=== PATIENT | male | born 1960 | race Caucasian/White ===

== ENCOUNTER 2019-04-23 16:19 | Inpatient (IN) ==
[2019-04-23] MEDS ORDERED: ZOFRAN IV ONE (16:58)
[2019-04-23 17:14] LABS: BASO# 0.01 X1000 (0.0-0.2); BASO% 0.1 % (0.0-0.8); EOS# 0.03 X1000 (0.0-0.7); EOS% 0.2 % (0.0-10.0); HEMATOCRIT 46.8 % (42.0-52.0); HEMOGLOBIN 15.9 g/dL (14.0-18.0); IMM GRAN# 0.06 X1000 (0.0-0.04); IMM GRAN% 0.5 % (0.0-0.5); LYMPH# 0.59 X1000 (1.2-3.4); LYMPH% 4.5 % (20.5-51.1); MCH 29.9 PG (27-31); MONO# 0.73 X1000 (0.11-0.59); MONO% 5.6 % (1.7-9.3); MPV 10.7 FL (7.4-10.4); NEUT% 89.1 % (42.2-75.2); PLT 215 X1000 (130-400); RBC 5.32 XMIL (4.7-6.1); RDW 14.7 % (11.5-14.5); WBC 13.02 X1000 (4.8-10.8)
[2019-04-23 17:21] LABS: INR 0.94; PROTIME 12.6 Seconds (11.0-16.0)
[2019-04-23 17:22] LABS: PTT 24.8 Seconds (22.3-41.8)
--- NOTE | 2019-04-23 17:23 | Diag Imaging Result Doc PS360 ---
EXAM: CHEST-1 VIEW - 04/23/2019 HISTORY: abd pain TECHNIQUE: Portable chest one view COMPARISON: 04/24/2016 FINDINGS: Heart size appears upper normal. There is a right basilar calcified granuloma from old granulomatous disease. The lungs otherwise appear clear. There is a small right pleural effusion. There is no evidence of pneumothorax. IMPRESSION: Small right pleural effusion. No other evidence of acute disease. Electronically signed by Shmuel De Souza 04/23/2019 5:21 PM
[2019-04-23 17:35] LABS: URINE SOURCE CLEAN CATCH
[2019-04-23 17:38] LABS: BILIRUBIN URINE NEGATIVE (NEGATIVE); BLOOD URINE TRACE (NEGATIVE); COLOR YELLOW; GLUCOSE URINE 500 mg/dL (NEGATIVE); KETONE URINE 10 mg/dL (NEGATIVE); LEUKOCYTES URINE NEGATIVE (NEGATIVE); NITRITE URINE NEGATIVE (NEGATIVE); PROTEIN URINE 100 mg/dL (NEGATIVE); SP GRAVITY URINE 1.021; TURBIDITY URINE CLEAR (CLEAR); UROBILINOGEN URINE NORMAL (NORMAL)
[2019-04-23] MEDS ORDERED: MORPHINE IV ONE ×2 (17:38→19:22)
[2019-04-23 17:40] LABS: UR EPITHELIAL CELLS <10 /HPF (<10); URINE BACTERIA NEGATIVE /HPF; URINE RBC <10 /HPF (<10); URINE WBC <10 /HPF (<10)
[2019-04-23 17:42] LABS: ALB/GLOB RATIO 1.5; ALBUMIN 4.5 g/dL (3.5-5.0); CALCIUM 10.7 mg/dL (8.8-10.2); CREATININE 1.3 mg/dL (0.7-1.2); TOTAL BILIRUBIN 0.52 mg/dL (0.20-1.00); TOTAL PROTEIN 7.5 g/dL (6.3-8.3)
[2019-04-23] MEDS: NS 1,000 ML IV SCH (17:46)
--- NOTE | 2019-04-23 19:01 | PROVIDER DOCUMENTATION ---
This chart was entered by Caitlyn Hunter Scribe, acting as scribe for Conrad Bergeron MD. HPI-Abdominal Pain/GI Problem - General Source: patient, family () - History of Present Illness-ABD Nature of Presenting Problems: 58 yowm presents to the ed with c/o epigastric pain radiating into RUQ and LUQ with nausea and vomiting. pt sts acute onset @ 0900am this morning and has been worsening since onset. pt sts constant dull pain with intermittent sharp stanley. pt sts he has had abnormal BM today with onset of only 1 movement and normally he has multiple BM daily. pt st standing improves pain but does not make it resolve, lying on back or side increases pain. t on exam looks to not feel well but is nontoxic in appearance Abdominal Pain Onset Location: reports: epigastric Pain Radiation: reports: RUQ, LUQ Quality of Pain: reports: dull (constant), sharp (intermittent) Severity in ED: reports: moderate Onset/Duration: reports: this morning (0900) Timing: reports: still present, constant, getting worse Activities at Onset: reports: light activity Exposure to sick contacts?: No Modifying Factors: improves with: other (standing). worse with: lying down, movement, palpation Associated Symptoms: reports: malaise, nausea, vomiting. denies: back/neck pain, chest pain, diarrhea, fever/chills, headaches, shortness of breath, sensory/motor loss Last BM: this morning Dark Stools Present?: reports: none noticed Rectal Bleeding: reports: none # of Diarrhea Episodes: 0 Rectal Pain: reports: none # of Vomiting Episodes: 3 Bruising or Bleeding Gums?: No Similar Symptoms Previously?: No Recently seen or treated by another doctor?: No <Conrad Bergeron - Last Filed: 04/23/19 18:59> <Ruel Canela - Last Filed: 04/24/19 00:18> - General Chief Complaint: Abdominal Pain Stated Complaint: STOMACH PAIN Time Seen by Provider: 04/23/19 16:33 Allergies/Adverse Reactions: Patient Allergies Allergy/AdvReac Type Severity Reaction Status Date / Time No Known Allergies Allergy Verified 01/13/18 12:32 Home Medications: Home Medication List Medication Instructions Recorded Confirmed Last Taken Type Aspirin [Ecotrin] 81 mg PO DAILY 1204/23/19 01/12/18 History Azathioprine [Imuran] 50 mg PO QHS 04/24/16 04/23/19 01/12/18 20:00 History 50 Carvedilol [Coreg] 12.5 mg PO BID 04/24/16 04/23/19 01/12/18 20:00 History 12.5 Hydrochlorothiazide 12.5 mg PO DAILY 04/24/16 04/23/19 01/12/18 07:00 History 12.5 Lisinopril 20 mg PO DAILY 04/24/16 04/23/19 01/12/18 07:00 History 10 Nifedipine [Nifedipine ER] 30 mg PO BID 01/12/18 04/23/19 01/12/18 20:00 History 30 PRAVAstatin [Pravachol] 40 mg PO QHS 01/12/18 04/23/19 01/12/18 20:00 History 40 Pantoprazole [Protonix] 40 mg PO QAM 01/12/18 04/23/19 01/12/18 06:00 History 40 Tacrolimus 2 cap PO QHS 01/12/18 04/23/19 01/12/18 20:00 History 2 Tacrolimus 3 cap PO QAM 01/12/18 04/23/19 01/12/18 07:00 History 3 Azathioprine [Imuran] 1 tab PO QHS 04/23/19 04/23/19 Unknown History Fenofibrate [Tricor] 1 tab PO QHS 04/23/19 04/23/19 Unknown History Gabapentin 1 cap PO PRN PRN 04/23/19 04/23/19 Unknown History Glipizide [Glipizide ER] 1 tab PO BID 04/23/19 04/23/19 Unknown History Insulin Glargine,Hum.rec.anlog 20 units SUBQ PRN PRN 04/23/19 04/23/19 Unknown History [Toujeo Solostar] Liraglutide [Victoza] 1.8 mg SUBQ QHS 04/23/19 04/23/19 Unknown History Metformin E.r. [Glucophage Xr] 1,000 mg PO QHS 04/23/19 04/23/19 Unknown History Review of Systems - Adult - REVIEW OF SYSTEMS - ADULT Constitutional: denies: chills, fever Eyes: reports: no symptoms reported Ears, Nose, Mouth & Throat: reports: no symptoms reported Cardiovascular: denies: chest pain, palpitations Respiratory: denies: cough, shortness of breath, wheezing Gastrointestinal: reports: see HPI, abdominal pain, nausea, vomiting Genitourinary: denies: dysuria, flank pain Musculoskeletal: denies: back pain, neck pain Integumentary: reports: no symptoms reported Neurological: denies: dizziness/vertigo, headache/migraines Psychiatric: reports: no symptoms reported Endocrine: reports: no symptoms reported Hematologic/Lymphatic: reports: no symptoms reported Allergic/Immunologic: reports: no symptoms reported All Other Systems: Reviewed and Negative <Conrad Bergeron - Last Filed: 04/23/19 18:59> Past History - Adult - PAST MEDICAL HISTORY-ADULT Review of Records: reports: Old Records Reviewed, Nursing Assessment Review, Medications Reviewed, Social history reviewed & non-contributory. 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), other (portal venous hypertension) Genitourinary: reports: kidney stones Musculoskeletal: reports: denies history Neurological: reports: denies history Psychiatric: reports: denies history Endocrine/Immune: reports: Diabetes Diabetes Type: Type 2 Other Conditions: reports: denies history Additional History: skin cancer - PRIOR SURGERIES/PROCEDURES Surgical/Procedure History: reports: cholecystectomy, joint replacement, other (portacava shunt to liver/liver transplant) - IMMUNIZATION STATUS Childhood Immunizations: See Nurse Assessment Flu Vaccine: See Nurse Assessment - FAMILY HISTORY Family History: reviewed, not pertinent - SOCIAL HISTORY Smoking: denies Substance Use: denies Living Situation: family <Conrad Bergeron - Last Filed: 04/23/19 18:59> Physical Exam-General - PHYSICAL EXAM-ADULT Initial Vital Signs Reviewed: Yes - CONSTITUTIONAL General Appearance: appears well, alert, mild distress, obese - EYES Eyes: PERRL/EOMI, pink conjunctivae - HEAD, EARS, NOSE, MOUTH & THROAT HENMT: moist mucous membranes - NECK Neck: non-tender, full range of motion, supple, normal inspection - RESPIRATORY Respiratory: chest non-tender, lungs clear, normal breath sounds - CARDIOVASCULAR Cardiovascular: normal peripheral pulses, regular rate, rhythm - CHEST (BREASTS) Chest/Breast: deferred - GASTROINTESTINAL (ABDOMEN) Abdominal Exam: soft, abnormal bowel sounds (decreased), guarding, tenderness (epigastric RUQ and LUQ), other (has nausea on exam). negative: distended, rigid, rebound - GENITOURINARY Male Genitalia: deferred Rectal Exam: deferred Hemoccult Exam: deferred - MUSCULOSKELETAL Back Exam: normal inspection, no CVA tenderness, no vertebral tenderness Extremity: normal range of motion, non-tender, normal capillary refill - SKIN Integumentary: normal color, normal turgor, warm/dry - NEUROLOGIC Neurologic: grossly normal - PSYCHIATRIC Psych/Mental Status: normal mood/affect, normal thought content, normal thought process, oriented x 3 <Conrad Bergeron - Last Filed: 04/23/19 18:59> Progress - PLAN OF CARE/RESULTS Progress/Plan/Lab Results: Vital Signs - 8 hr 04/23/19 16:27 Temperature 98 F Pulse Rate 70 Respiratory Rate 18 Blood Pressure 134/83 O2 Sat by Pulse Oximetry 100 Result Diagrams: 04/23/19 17:02 04/23/19 17:02 - EKG 1 Time of EKG reading by physician:: 17:09 EKG Read and Signed by:: Conrad Bergeron EKG Interpretation (*Must complete 3 of following elements*): Normal (borderline) Rate: 67 Rhythm: nsr [place]: normal QRS: other (low voltage qrs) CT Interval: normal ST Wave: normal - XRAY 1 XRAY: Bilateral XRAY Study: Chest Impression: See EMR Report (EXAM: CHEST-1 VIEW - 04/23/2019 HISTORY: abd pain TECHNIQUE: Portable chest one view COMPARISON: 04/24/2016 FINDINGS: Heart size appears upper normal. There is a right basilar calcified granuloma from old granulomatous disease. The lungs otherwise appear clear. There is a small right pleural effusion. There is no evidence of pneumothorax. IMPRESSION: Small right pleural effusion. No other evidence of acute disease. Electronically signed by Shmuel De Souza 04/23/2019 5:21 PM 04/23/19 1721 Interpreting Physician: Shmuel De Souza MD Dictated Date/Time: 04/23/19 1720 cc: Conrad Bergeron MD; Jerrica Nava MD) - CT/MRI 1 CT Study: Abdomen, Pelvis Impression: See EMR Report - CHANGE OF SHIFT REPORT (ED Provider) 1 Report Given and Care Transferred to:: [facility] Time of Transfer: 18:59 Items Pending: CT/MRI Results <Conrad Bergeron - Last Filed: 04/23/19 18:59> - PLAN OF CARE/RESULTS Progress/Plan/Lab Results: Vital Signs - 8 hr 04/23/19 16:27 04/23/19 16:41 04/23/19 17:45 Temperature 98 F Pulse Rate 70 Respiratory Rate 18 Blood Pressure 134/83 131/88 131/86 O2 Sat by Pulse Oximetry 100 99 98 04/23/19 18:01 04/23/19 18:30 04/23/19 19:00 Temperature Pulse Rate Respiratory Rate Blood Pressure 134/84 O2 Sat by Pulse Oximetry 92 L 99 99 04/23/19 19:01 Temperature Pulse Rate Respiratory Rate Blood Pressure 150/96 O2 Sat by Pulse Oximetry 98 Laboratory Results - last 24 hr 04/23/19 04/23/19 04/23/19 17:02 17:02 17:02 WBC 13.02 H RBC 5.32 Hgb 15.9 Hct 46.8 MCV 88.0 MCH 29.9 MCHC 34.0 RDW Std Deviation 14.7 H Plt Count 215 MPV 10.7 H Immature Gran % (Auto) 0.5 Neut % (Auto) 89.1 H Lymph % (Auto) 4.5 L [place] % (Auto) 5.6 Eos % (Auto) 0.2 Baso % (Auto) 0.1 Immature Gran # (Auto) 0.06 H Neut # (Auto) 11.60 H Lymph # (Auto) 0.59 L [place] # (Auto) 0.73 H Eos # (Auto) 0.03 Baso # (Auto) 0.01 PT 12.6 INR 0.94 PTT (Actin FS) 24.8 Sodium 135 L Potassium 5.0 Chloride 96 L Carbon Dioxide 19 L Anion Gap 20 BUN 28 H Creatinine 1.3 H Estimated GFR/1.73 m2 57 BUN/Creatinine Ratio 22 Glucose 221 H Calculated Osmolality 282 Calcium 10.7 H Total Bilirubin 0.52 AST 22 ALT 29 Alkaline Phosphatase 46 Total Protein 7.5 Albumin 4.5 Globulin 3.0 Albumin/Globulin Ratio 1.5 Amylase 410 H Lipase 1318 H Urine Source Urine Color Urine Turbidity Urine pH Ur Specific [place] Urine Protein Ur Glucose (Stick) Ur Ketones (Stick) Urine Blood Urine Nitrite Urine Bilirubin Urobilinogen Dipstick Urine Leukocytes Urine WBC (Auto) Urine RBC (Auto) U Epithel Cells (Auto) Urine Bacteria (Auto) 04/23/19 17:30 WBC RBC Hgb Hct MCV MCH MCHC RDW Std Deviation Plt Count MPV Immature Gran % (Auto) Neut % (Auto) Lymph % (Auto) [place] % (Auto) Eos % (Auto) Baso % (Auto) Immature Gran # (Auto) Neut # (Auto) Lymph # (Auto) [place] # (Auto) Eos # (Auto) Baso # (Auto) PT INR PTT (Actin FS) Sodium Potassium Chloride Carbon Dioxide Anion Gap BUN Creatinine Estimated GFR/1.73 m2 BUN/Creatinine Ratio Glucose Calculated Osmolality Calcium Total Bilirubin AST ALT Alkaline Phosphatase Total Protein Albumin Globulin Albumin/Globulin Ratio Amylase Lipase Urine Source CLEAN CATCH Urine Color YELLOW Urine Turbidity CLEAR Urine pH 6.0 Ur Specific [place] 1.021 Urine Protein 100 A Ur Glucose (Stick) 500 A Ur Ketones (Stick) 10 A Urine Blood TRACE A Urine Nitrite NEGATIVE Urine Bilirubin NEGATIVE Urobilinogen Dipstick NORMAL Urine Leukocytes NEGATIVE Urine WBC (Auto) <10 Urine RBC (Auto) <10 U Epithel Cells (Auto) <10 Urine Bacteria (Auto) NEGATIVE Orders Category Date Time Status Nursing- Obtain EKG ONCE Care 04/23/19 16:58 Active CHEST-1 VIEW [RAD] Stat Exams 04/23/19 16:[address] ABD/PELVIS W/IV CONT ONLY [CT] Stat Exams 04/23/19 16:58 Taken AMYLASE [CHEM] Stat Lab 04/23/19 17:02 Completed CBC WITH DIFF [HEME] Stat Lab 04/23/19 17:02 Completed COMPREHENSIVE METABOLIC PANEL [CHEM] Stat Lab 04/23/19 17:02 Completed LIPASE [CHEM] Stat Lab 04/23/19 17:02 Completed PROTIME WITH INR [COAG] Stat Lab 04/23/19 17:02 Completed PTT [COAG] Stat Lab 04/23/19 17:02 Completed URINALYSIS [URINALYSIS] Stat Lab 04/23/19 17:30 Completed 0.9% Sodium Chloride Inj [Ns] 1,000 ml Med 04/23/19 17:15 Active IV 200 mls/hr Morphine Med 04/23/19 17:38 Discontinued 4 mg IV NOW ONE Morphine Med 04/23/19 19:22 Discontinued 4 mg IV NOW ONE Ondansetron [Zofran] Med 04/23/19 16:58 Discontinued 8 mg IV NOW ONE EKG [EKG] Stat Ther 04/23/19 16:58 Draft Pt signed out to me by Dr. Bergeron, spoke with Dr. Neumann and will admit Result Diagrams: 04/23/19 17:02 04/23/19 17:02 <Ruel Canela - Last Filed: 04/24/19 00:18> Departure - Departure Date of Disposition Decision: 04/23/19 Certified Medical Emergency: Emergent - Critical Care Note This patient required my direct & personal management of CC.: No <Conrad Bergeron - Last Filed: 04/23/19 18:59> - Departure Date of Disposition Decision: 04/24/19 Time of Disposition Decision: 00:15 <Ruel Canela - Last Filed: 04/24/19 00:18> - Departure DIAGNOSIS: Liver transplant recipient Pancreatitis Qualifiers: Chronicity: acute Pancreatitis type: unspecified pancreatitis type Acute pancreatitis complication: no infection or necrosis Qualified Code(s): K85.90 - Acute pancreatitis without necrosis or infection, unspecified Disposition: ADMITTED INPATIENT 09 Condition: Good Referrals and Follow-Ups: Jerrica Nava MD [Primary Care Provider] - Attestation - Physician/ ANTONIETA Attestation Patient care was provided by Advanced Practice Provider:: No The physician spent face to face time with patient:: Yes Advanced Practice Provider documentation review:: Supervising physician onsite a nd consulted in the evaluation and care of this patient. The physician did have a face to face encounter with the patient. <Conrad Bergeron - Last Filed: 04/23/19 18:59> This chart was documented by the indicated scribe, (Caitlyn Hunter Scribe) and accurately reflects the services I performed and decisions made by me, Conrad Bergeron MD, as attested by the provider's signature.
--- NOTE | 2019-04-23 21:02 | EKG Report ---
Test Performed on : 04/23/2019 5:09:42 PM Test Reason : abd pain Blood Pressure : / mmHG Vent. Rate : 067 BPM Atrial Rate : 067 BPM P-R Int : 148 ms QRS Dur : 094 ms QT Int : 416 ms P-R-T Axes : 067 019 066 degrees QTc Int : 439 ms Normal sinus rhythm. Low voltage QRS Borderline ECG When compared with ECG of 24-APR-2016 13:36, No significant change was found Unconfirmed Result
[2019-04-24] MEDS ORDERED: MORPHINE IV ONE (00:20)
[2019-04-24] MEDS ORDERED: MORPHINE ONE (00:20)
[2019-04-24] MEDS ORDERED: ZOFRAN IV ONE (00:20)
[2019-04-24] MEDS ORDERED: ZOFRAN ONE (00:20)
[2019-04-24] MEDS: NS 1,000 ML IV SCH ×3 (00:36→17:50)
[2019-04-24] MEDS ORDERED: SODIUM CHLORIDE 0.9% INJ PRN (02:14)
[2019-04-24] MEDS: MORPHINE IV PRN ×3 (03:49→17:50)
[2019-04-24] MEDS: PHENERGAN IV PRN ×3 (03:49→17:51)
[2019-04-24] MEDS ORDERED: NS 1,000 ML IV SCH (04:30)
[2019-04-24 07:04] LABS: BASO# 0.01 X1000 (0.0-0.2); BASO% 0.1 % (0.0-0.8); EOS# 0.08 X1000 (0.0-0.7); EOS% 0.8 % (0.0-10.0); HEMATOCRIT 45.8 % (42.0-52.0); HEMOGLOBIN 15.3 g/dL (14.0-18.0); IMM GRAN# 0.03 X1000 (0.0-0.04); IMM GRAN% 0.3 % (0.0-0.5); LYMPH# 0.47 X1000 (1.2-3.4); LYMPH% 4.6 % (20.5-51.1); MCH 29.9 PG (27-31); MCHC 33.4 g/dL (33-37); MCV 89.6 FL (81-99); MONO# 0.77 X1000 (0.11-0.59); MONO% 7.5 % (1.7-9.3); MPV 10.4 FL (7.4-10.4); NEUT# 8.92 X1000 (1.4-6.5); NEUT% 86.7 % (42.2-75.2); PLT 172 X1000 (130-400); RBC 5.11 XMIL (4.7-6.1); WBC 10.28 X1000 (4.8-10.8)
[2019-04-24 07:13] LABS: HEMOGLOBIN A1C 6.1 % (4.8-6.0)
[2019-04-24 07:43] LABS: ALB/GLOB RATIO 1.5; ALBUMIN 4.3 g/dL (3.5-5.0); CALCIUM 9.7 mg/dL (8.8-10.2); CREATININE 1.3 mg/dL (0.7-1.2); MAGNESIUM 1.6 mg/dL (1.5-2.7); POTASSIUM 5.1 mmol/L (3.5-5.1); TOTAL BILIRUBIN 0.36 mg/dL (0.20-1.00); TOTAL PROTEIN 7.1 g/dL (6.3-8.3)
--- NOTE | 2019-04-24 08:09 | Diag Imaging Result Doc PS360 ---
EXAM: CT ABD/PELVIS W/IV CONT ONLY HISTORY: abd pain, poss SBO TECHNIQUE: CT abdomen and pelvis with intravenous contrast COMPARISON: None. FINDINGS: There are calcified right hilar and subcarinal lymph nodes with a right lower lobe granuloma. Prominent fatty infiltration of the liver. The gallbladder has been removed. There is inflammation about the pancreas and duodenum. No pancreatic calcifications or pseudocyst. The spleen measures 14.8 cm in length. Normal adrenal glands and kidneys. No hydronephrosis. No aortic aneurysm. Varices in the left upper quadrant. Moderate atherosclerosis. No bowel obstruction. No inflammation about the cecum. The urinary bladder is moderately distended and is normal. Normal prostate. IMPRESSION: 1.Acute pancreatitis and possible duodenitis 2.Fatty infiltration of the liver 3.Mild splenomegaly 4.Cholecystectomy 5.There is evidence of a prior granulomatous infection 6.Atherosclerosis 7.A preliminary report was given at 11:08 PM on 04/23/2019 This exam was performed using automated exposure control, adjustment of mA or kV according to patient size, and/or use of iterative reconstruction technique. Electronically signed by Jay Patel 04/24/2019 8:06 AM
--- NOTE | 2019-04-24 08:45 | HISTORY AND PHYSICAL ---
PRIMARY CARE PROVIDER: Dr. Jerrica Nava. DATE AND TIME: 04/24/2019 at 0200. CHIEF COMPLAINT: Abdominal pain. HISTORY OF PRESENT ILLNESS: Mr. Rushing is a 58-year-old, male with a past medical history of liver transplantation. He did have a history of cirrhosis of the liver which was thought to be deemed secondary to fatty infiltration of the liver. On 01/29/2014, he did undergo a liver transplantation. He is followed by Dr. Mullen at [facility] in [place], [place]. He does have his next followup appointment on 05/10/2019. The patient states that starting yesterday morning at 9 a.m., he did begin to have right upper quadrant and left upper quadrant abdominal pain. The patient states the pain is a constant dull ache, between 3 and 5/10 on the pain scale, though it does become sharp and more intense at times, getting up to a 9/10 on the pain scale. Pain medicine has helped improve his pain. He states that his pain gets worse when he takes a deep breath. He also reports that he has had 2 episodes of nausea and vomiting since the onset of his abdominal pain. He also states that he has noted a decrease in his bowel movements. The patient states that he normally has a few bowel movements a day. This is secondary to some of the medicine that he takes. Though, he has not had a bowel movement since yesterday. He denied any hematemesis, any coffee-grounds appearing emesis, hematochezia, or melena. The patient states that his stools have been brown but shiny in color as well. He definitely stated that he was not having black stools. The patient did recently travel to [facility] on a 4 day [place] cruise, though he did come back Thursday. He had felt fine throughout the trip and since returning from his trip, he did begin not feeling well yesterday morning. He also states everyone that traveled with them has felt good as well. They all ate the same foods. He denied any other travel outside the [place] The patient denies any headache, dizziness. He denies any chest pain, shortness of breath, or cough. He denies any dysuria or urinary frequency. He also denies any pain, numbness, tingling, or swelling in extremities. Also, would like to note that upon further questioning, the patient did start a new medication recently of Victoza, which can be known to cause pancreatitis as well. Upon evaluation in the ER, the patient did have some mild leukocytosis with a white blood cell count of 13,002. He also does appear to have acute kidney injury with a BUN of 28, creatinine of 1.3, and a GFR of 57. The amylase was elevated at 1410 and lipase was elevated at 1318. Urinalysis obtained did show urine positive for protein, glucose, ketones, and trace blood, though was otherwise negative for nitrites, leukocytes, white blood cells, or bacteria. Given the patient's reported symptoms, we did perform a CT of the abdomen and pelvis which did show that the patient had peripancreatic fat stranding suggestive of acute interstitial pancreatitis, though there were no fluid collections or pancreatic devascularization noted. 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 There was also fatty hepatomegaly. We will hydrate the patient. We will treat his pain. We will place him on the medical floor for further treatment and evaluation. REVIEW OF SYSTEMS: A 14 point review of systems was conducted with the patient. All were negative except for pertinent positives mentioned above in the HPI. PAST MEDICAL HISTORY: 1. Recent diagnosis and removal of a basal cell carcinoma to his right face/cheek area. 2. Diabetes mellitus. 3. Hypertension. 4. History of kidney stones. 5. Hyperlipidemia. 6. Sleep apnea for which the patient wears CPAP at night. 7. History of cirrhosis of the liver for which was thought to be secondary to fatty infiltration of the liver. The patient has since undergone a liver transplantation on 01/29/2014. He is followed by a physician in [place], [place]. 8. History of gastritis and reflux disease. 9. History of GI bleeding. PAST SURGICAL HISTORY: 1. Cholecystectomy. 2. Portacaval shunt. 3. Right knee meniscus repair. 4. A partial right knee replacement. 5. Liver transplantation in 2013. SOCIAL HISTORY: The patient is a former smoker. He did smoke 2 packs per day for 30 years, though quit smoking in 2007. FAMILY HISTORY: The patient states that he is adopted. He does not know his biological family history. ALLERGIES: Patient has no known allergies. HOME MEDICATIONS: 1. Aspirin 81 mg p.o. daily. 2. Imuran 50 mg p.o. at bedtime. 3. Coreg 12.5 mg p.o. b.i.d. 4. Gabapentin 100 mg capsule p.o. p.r.n. as directed. 5. Glipizide extended release 10 mg tablet p.o. b.i.d. 6. Hydrochlorothiazide 12.5 mg p.o. daily. 7. Toujeo SoloSTAR 20 units subcutaneously as directed. 8. Victoza 1.8 mg subcutaneously at bedtime. 9. Lisinopril 20 mg p.o. daily. 10. Glucophage XR 1000 mg p.o. at bedtime. 11. Nifedipine extended release 30 mg p.o. b.i.d. 12. Protonix 40 mg p.o. daily. 13. Pravastatin 40 mg p.o. at bedtime. 14. Prograf 1 mg capsule, 3 capsules p.o. q.a.m. 15. Prograf 1 mg capsule, 2 capsules p.o. at bedtime. DIAGNOSTIC DATA/LABORATORY RESULTS: White blood cell count is 13,002, hemoglobin 15.9, hematocrit 46.8, platelet count is 215,000. PT 12.6, INR 0.94, PTT is 24.8. Sodium 135, potassium 5, chloride 96, serum bicarbonate is 19, BUN 28, creatinine 1.3, GFR is 57, glucose 221, calcium 10.7. Liver function tests within normal limits. Amylase 1410, lipase is 1318. Urinalysis was obtained via clean catch, was positive for protein, glucose, ketones, and trace blood, though was negative for nitrites, leukocytes, white blood cells, or bacteria. EKG showed normal sinus rhythm at a rate of 67 with a QTc of 439. Chest x-ray showed small right pleural effusion, though no evidence of acute disease. CT of the abdomen and pelvis with contrast did show peripancreatic fat stranding suggestive of acute interstitial pancreatitis. There were no fluid collections or pancreatic devascularization noted. The was also a large gastric cardia varix that was noted as a component of a splenorenal shunt. There was also fatty hepatomegaly noted. PHYSICAL EXAMINATION: VITAL SIGNS: Temperature 98.1 degrees, heart rate 73, respirations 18, blood pressure is 142/82, oxygen saturation is 96% on room air. GENERAL: Mr. Rushing is a very pleasant, 58-year-old, male who is resting in the inpatient bed. He was alert and oriented to person, place, time, and situation. HEENT: Head is atraumatic and normocephalic. Pupils are equal, round, reactive to light, were 3 mm bilaterally and brisk. Oral mucosa was moist. Oropharynx is clear. NECK: Supple. Trachea midline. CARDIOVASCULAR: Patient has S1-S2 present. No murmurs, gallops, or rubs appreciated, with a regular rate and rhythm. PULMONARY: The patient has symmetrical chest expansion bilaterally. LUNGS: Lung sounds are clear to auscultation in bilateral full browne. ABDOMEN: Soft. Does not appear to be distended. The patient does have a protuberant abdomen noted. Bowel sounds are present in all 4 quadrants, were slightly hyperactive. The patient did report tenderness in the right upper quadrant, epigastric area, and left upper quadrant. This was worse in the right upper quadrant area. EXTREMITIES: No cyanosis or edema noted. Pulse, motor, and sensory were intact in all extremities. Radial pulses and pedal pulses were 2+ bilaterally. INTEGUMENTARY: The patient's skin is pink, warm, and dry. NEUROLOGICAL: The patient is alert and oriented to person, place, time, and situation. He is able to move all extremities. There were no focal neurological deficits noted. ASSESSMENT AND PLAN: 1. Acute pancreatitis. For further evaluation of this, we have ordered additional laboratory studies of a hemoglobin A1c, a lipid panel, a CRP, as well as a repeat amylase and lipase in the morning. We will provide intravenous hydration with normal saline for the patient. We will also provide as needed antiemetics and pain medicines. The patient did report that he recently did start taking a new medication of Victoza, which can be known to cause pancreatitis as well. We will continue to await diagnostic study results and follow along. We have placed a consult with Dr. Bishop with gastroenterology. We are awaiting his evaluation and further recommendations for management. 2. Status post liver transplantation. The patient, from what I understand, did develop cirrhosis of the liver secondary to a fatty liver. On the patient's CT, he did have fatty hepatomegaly noted as well. We have ordered a lipid panel. We are also going to perform an abdominal ultrasound this morning. We will continue his regularly prescribed medications of Imuran and Prograf. We will await gastroenterology evaluation and further recommendations for management. 3. Nausea and vomiting. We are providing intravenous hydration. We will continue with as needed antiemetics. 4. Hypertension. We have continued the patient's Coreg. 5. Hyperlipidemia. We do have a lipid profile ordered at this time. We are awaiting those results. We will continue to follow. 6. Diabetes mellitus. We have been held the patient's oral diabetic medications. We will place him on pattern of fingerstick blood sugars. Given that he is nothing per oral at this time, we will do a patient specific sliding scale regular insulin. 7. Sleep apnea. The patient is going to bring his CPAP machine from home. 8. Deep vein thrombosis prophylaxis will be provided with sequential compression devices. The patient has been placed on the medical floor with telemetry. He will have vital signs every 6 hours. We will do strict intake and output, incentive spirometry. Further orders and recommendations pending hospital course, diagnostic studies, and physician evaluation. Dictated by MAHAMED Allen for Aidan Neumann MD cc: Aidan Neumann MD Patient presenting with abdominal pain. Lipase is raised. I concur with the assessment and plan of the COMPUTER SUPPORT SPECIALIST. . [facility]
[2019-04-24 09:17] LABS: C REACTIVE PROT QUANT 35.04 mg/L (0.00-5.00)
[2019-04-24] MEDS: COREG PO SCH ×2 (09:36→20:36)
[2019-04-24] MEDS: PROGRAF PO SCH ×2 (09:37→20:37)
[2019-04-24] MEDS: PROTONIX IV SCH ×2 (09:37→09:41)
--- NOTE | 2019-04-24 10:47 | Diag Imaging Result Doc PS360 ---
EXAM: US ABDOMEN-COMPLETE HISTORY: Fatty Hepatomegaly,Hx of Liver Transplant TECHNIQUE: Abdominal ultrasound COMPARISON: CT from 04/23/2019 FINDINGS: The pancreas is predominantly obscured. There is fatty infiltration of the liver. It is difficult to penetrate the liver. The liver is prominent. No hydronephrosis to the right kidney. The gallbladder is not present. The common bile duct measures 7 mm. Normal left kidney. No hydronephrosis. Spleen measures 15.7 cm in length. No ascites. IMPRESSION: 1.Fatty infiltration of the liver 2.Cholecystectomy 3.Splenomegaly Electronically signed by Jay Patel 04/24/2019 10:45 AM
[2019-04-24] MEDS: HUMULIN R SUBQ SCH ×3 (11:18→20:36)
--- NOTE | 2019-04-24 15:38 | PROGRESS NOTE ---
DATE: 04/24/2019 SUBJECTIVE: Patient has no major complaints. OBJECTIVE: Vitals: Blood pressure is 138/83, heart rate 74, respiratory rate 20, temperature 98 degrees, 98% on room air. Cardiovascular: Regular rate and rhythm. Pulmonary: Bilateral breath sounds, clear to auscultation. GI: Soft, nontender, nondistended. Bowel sounds are positive. LABORATORY DATA: White count 10, hemoglobin and hematocrit 15 and 45, platelets 172,000. Sodium 135. BUN and creatinine 24 and 1.3. Lipase is about the same 1492, amylase 585 and is not improved. PROBLEM LIST: 1. Acute pancreatitis. I think this is most likely related to medications. He is not a drinker that I am aware of, alcohol in any case. He was just started on Victoza. His transplant was in 2013; that was 5 years ago. Statistically though the azathioprine would be the most common offender. Tacrolimus can also cause pancreatitis. Hydrochlorothiazide can cause pancreatitis, although out of all of them, Imuran is probably the highest risk. Unfortunately, it is one of his transplant drugs so it would be a little bit of a concern to stop it abruptly, but at this point, I went ahead and stopped that and left him on his tacrolimus. We probably should also check a tacrolimus level if we have not done that already. In any case, we will continue supportive care and follow. GI has been consulted. Continue fluids. I am going to switch him to LR. Pain control and monitor. Repeat his enzymes tomorrow. 2. Status post liver transplant. We will continue his tacrolimus. I have tried to get in touch with the transplant service just to make sure that there is nothing else they want to do from our standpoint or at least give us a little bit more recommendations in managing his immunosuppressants. 3. Disposition. I would like his numbers to improve. He does not look particularly toxic from this, but I also probably want his numbers to continue to improve. cc: Leobardo Nielsen MD
[2019-04-24] MEDS ORDERED: IMURAN PO SCH (21:00)
[2019-04-25] MEDS: NS 1,000 ML IV SCH ×4 (04:40→17:50)
[2019-04-25] MEDS: PHENERGAN IV PRN ×2 (04:41→14:31)
[2019-04-25] MEDS: MORPHINE IV PRN ×5 (04:41→23:18)
--- NOTE | 2019-04-25 05:57 | GASTROENTEROLOGY CONSULTATION ---
DATE: 04/25/2019 REASON FOR CONSULTATION: Acute pancreatitis. HISTORY OF PRESENT ILLNESS: Mr. Horacio Rushing is a 58-year-old gentleman with past medical history of hypertension, hyperlipidemia, [id number] diabetes, morbid obesity, GERD, history of MCKEON cirrhosis status post liver transplant in 2013 who presents with 1-day history of severe upper abdominal cramping with associated nonbilious, nonbloody emesis. The patient reports developing the pain yesterday morning that became progressively worse throughout the day. He says the pain is worse with deep breathing. He denies any fevers, change in bowel habits, rectal bleeding, melena, or abnormal weight loss. He recently returned from a 4-day cruise to [facility] about a week ago. During his trip, he did endorse having about 3 mixed drinks; however, denies any excessive drinking. No recent antibiotics. His most recent change with medications was starting Victoza about 2 months ago. He denies any other new medications. He underwent recent surgery for basal cell cancer of the right cheek and calf last Thursday. He was not informed of being given any medications during that procedure. He denies any changes to his other medications. No sick contacts or no exotic exposures during his trip. No history of pancreatitis. REVIEW OF SYSTEMS: As per HPI, otherwise 12-point review of systems is negative. PAST MEDICAL HISTORY: As per HPI. Also, he has a chronic kidney disease. PAST SURGICAL HISTORY: Liver transplant in [address] done at [facility] followed by Dr. He Mullen, inguinal hernia repair in the remote past, right knee replacement, remote eye surgery. The patient is followed by Dr. Booth in regards to his GI issues. FAMILY HISTORY: He is adopted. SOCIAL HISTORY: Former smoker, quit in 2007. Rare alcohol use. No drug use. MEDICATIONS: Actos, glipizide, metformin, Prograf 2 mg in the morning and 2 mg in the evening, Protonix 40 mg, Imuran 50 mg daily, hydrochlorothiazide, aspirin, nifedipine, lisinopril, fenofibrate, pravastatin. ALLERGIES: No known drug allergies. PHYSICAL EXAMINATION: Vital Signs: Temperature is 98.4, heart rate is 77, respiratory rate 18, blood pressure is 151/97, O2 saturation of 98% on room air. General: The patient is awake, alert, oriented, no acute distress. HEENT: Sclerae anicteric. Moist mucous membranes. Extraocular movement intact. Neck: Supple. No JVD or lymphadenopathy. Cardiac: Regular rate and rhythm. No murmurs. Lungs: Clear to auscultation bilaterally. Abdomen: Tender to palpation in the epigastric area. Obese. Surgical scar present. Bowel sounds are present. No rebound or guarding. Extremities: No clubbing, cyanosis. Neurologic: Nonfocal. LABS: White count 10.2 from 13.0 yesterday, hemoglobin 15.3, platelets of 172,000. INR 0.94. Sodium 135, potassium 5.1, chloride of 99, bicarb 23, BUN of 24, creatinine of 1.3, glucose of 187. Hemoglobin A1c is 6.1, calcium 9.7, total bilirubin 0.36, AST of 21, ALT of 24, alkaline phosphatase 44. CRP 35. Total protein of 7.1, albumin of 4.3, triglycerides 212, lipase of 1492. U-Tox with protein of 100, glucose of 500, ketones of 10. IMAGING: CT of the abdomen and pelvis with IV contrast shows acute pancreatitis with possible duodenitis, fatty infiltration of the liver, mild splenomegaly, cholecystectomy. There is evidence of prior granulomatous infection, atherosclerosis. Chest x-ray shows small right pleural effusion. No other evidence of acute disease. Abdominal ultrasound shows fatty infiltration of liver, cholecystectomy, splenomegaly, common bile duct measures 7 mm. ASSESSMENT AND PLAN: Mr. Horacio Rushing is a 58-year-old gentleman with past medical history of MCKEON cirrhosis status post liver transplant who presents with acute pancreatitis from unclear etiology. He says that he has been drinking recently in [facility], but denies any excessive alcohol use, and his last drink was over a week ago. His abdominal imaging is negative for gallstones and he is status post cholecystectomy. On ultrasound his common bile duct measures 7 mm. His LFTs are within normal limits. He does have some fatty liver, likely related to metabolic syndrome and morbid obesity. He denies any recent medications except for Victoza that started 3 months ago. There is no new medications that he is on that could be associated with pancreatitis. His Imuran has been the same dose since his transplant. He has been on hydrochlorothiazide as well for many years. We will hold his Victoza for now, continue his Imuran and Prograf at current dosing. We will keep him NPO with aggressive fluid replacement. We will trend his chemistries and CBC daily. No need to trend lipase and amylase at all. We will check a tacrolimus level, which should be done as a trough in the morning. Analgesics and antiemetics as needed. He was put on clear liquid diet and says his pain is a little bit more controlled today of 10/01. # Acute pancreatitis # OLT # Morbid obesity # NIDDM2 # HTN Thank you for this consult. Dr. Booth for resume care tomorrow. Please call with any questions or concerns. MTDD
[2019-04-25] MEDS: HUMULIN R SUBQ SCH ×4 (06:20→20:52)
[2019-04-25 08:02] LABS: BASO# 0.01 X1000 (0.0-0.2); BASO% 0.1 % (0.0-0.8); EOS# 0.08 X1000 (0.0-0.7); EOS% 0.8 % (0.0-10.0); HEMATOCRIT 42.5 % (42.0-52.0); IMM GRAN# 0.02 X1000 (0.0-0.04); IMM GRAN% 0.2 % (0.0-0.5); LYMPH# 0.66 X1000 (1.2-3.4); LYMPH% 6.8 % (20.5-51.1); MCH 30.2 PG (27-31); MCHC 32.9 g/dL (33-37); MCV 91.6 FL (81-99); MONO# 0.75 X1000 (0.11-0.59); MONO% 7.8 % (1.7-9.3); MPV 10.7 FL (7.4-10.4); NEUT# 8.14 X1000 (1.4-6.5); NEUT% 84.3 % (42.2-75.2); PLT 170 X1000 (130-400); RBC 4.64 XMIL (4.7-6.1); RDW 14.9 % (11.5-14.5); WBC 9.66 X1000 (4.8-10.8)
[2019-04-25 08:23] LABS: AGAP 13; ALB/GLOB RATIO 1.4; ALBUMIN 3.7 g/dL (3.5-5.0); ALKALINE PHOSPHATASE 43 U/L (32-122); BUN 15 mg/dL (8-22); CALCIUM 9.4 mg/dL (8.8-10.2); CHLORIDE 101 mmol/L (98-107); COSMO 280; ESTIMATED GFR > 60; GLUCOSE 165 mg/dL (70-104); GOT 13 U/L (10-34); GPT 17 U/L (10-44); POTASSIUM 4.7 mmol/L (3.5-5.1); SODIUM 138 mmol/L (136-145); TCO2 24 mmol/L (25-35); TOTAL BILIRUBIN 0.43 mg/dL (0.20-1.00); TOTAL PROTEIN 6.4 g/dL (6.3-8.3)
[2019-04-25] MEDS: PROGRAF PO SCH ×2 (08:24→20:52)
[2019-04-25] MEDS: COREG PO SCH ×2 (08:25→20:52)
[2019-04-25] MEDS: PROTONIX IV SCH (08:25)
[2019-04-25] MEDS: IMURAN PO SCH (08:25)
[2019-04-25] MEDS: SODIUM CHLORIDE 0.9% INJ SCH (08:26)
[2019-04-25] MEDS: ZOFRAN IV PRN ×3 (09:43→23:19)
--- NOTE | 2019-04-25 12:39 | PROGRESS NOTE ---
DATE: 04/25/2019 SUBJECTIVE: Patient resting in bed. Complains of abdominal pain, along with nausea and vomiting. OBJECTIVE: Vital Signs: Temperature 98.7, pulse 70, respiratory rate 17, blood pressure 171/90, oxygen saturation 98%. HEENT: The patient is atraumatic, normocephalic. Cardiovascular: S1, S2. Respiratory: Has evidence of good air entry bilaterally. Abdomen: Soft. No masses felt. Extremities: No evidence of significant edema. Central Nervous System: No obvious focal deficit noted. LABORATORY DATA: WBC 9.66, hematocrit 42.5, with a platelet count of 170,000. Sodium is 138, potassium 4.7, chloride is 101, bicarb 24, BUN is 15, creatinine is 1.0. Lipase level is pending. ASSESSMENT AND PLAN: 1. Acute pancreatitis. Maintain the patient on clear liquids only. Continue antiemetics as well as analgesic agent. Follow up on the patient's clinical progression. 2. Status post liver transplant. Continue all antirejection medications. We need to get with the patient's transplant center and see which of these drugs can be stopped, considering that they may be contributing to the patient's acute pancreatitis. 3. Hypertension. Optimize blood pressure control. 4. Diabetes mellitus. Continue blood sugar medications as well as sliding scale insulin. 5. Obstructive sleep apnea. The patient can get his continuous positive airway pressure machine from home if he does have one. 6. Deep venous thrombosis prophylaxis. Sequential compression devices. 7. Gastrointestinal prophylaxis. Proton pump inhibitor. cc: Aidan Neumann MD
--- NOTE | 2019-04-25 18:16 | GASTROENTEROLOGY PROGRESS NOTE ---
DATE: 04/25/2019 SUBJECTIVE: Patient is awake, alert, in no acute distress. He states he has tolerated a clear liquid diet. He is still complaining of some abdominal pain, worse to right upper quadrant. Patient states pain medication has helped some. He reports pain level of a 3 on scale of 1 to 10. Patient states he had recently went on a cruise and got back from the cruise last Thursday. Symptoms started this Thursday with abdominal pain, nausea, vomiting. No reported diarrhea. He states he was started on Victoza about a month ago. Other than that, he takes glipizide and metformin for his diabetes and has been on those 2 medications for at least 6 months. He denies a history of pancreatitis. Patient reports having 3 mixed drinks on his cruise. Prior to the cruise he had been following a Keto diet since around November and states he has lost about 40 pounds. While on the cruise he came off of his diet. Patient has a history of liver transplant and has a follow up appointment scheduled in [place], [place] with his transplant doctor, Dr. Mullen, for May 10. OBJECTIVE: Vital signs: Temperature 98.7 degrees, pulse 70 respirations 17, blood pressure 171/90. General: Patient is awake and alert, in no acute distress. HEENT: Normocephalic, atraumatic. Pupils equal, round, reactive to light. Sclerae nonicteric. Abdomen: Soft. Tenderness worse at the right upper quadrant area. Extremities: With no edema noted. He does discoloration to lower extremities. DIAGNOSTIC RESULTS: Laboratory: Hematology: WBC 9.66, hemoglobin 14.0, hematocrit 42.5, MCV 91.6, platelets 170,000. Chemistry: Sodium 138, potassium 4.7, chloride 101, CO2 24, BUN 15, creatinine 1.0, glucose 165, hemoglobin A1c 6.1, calcium 9.4. Total bilirubin 0.43, AST 13, ALT 17, alkaline phosphatase 43. C-reactive protein 35.04. Amylase on 04/24/2019 was 585. Lipase on 04/24/2019 was 1,492. Today his lipase is 655. ASSESSMENT AND PLAN: 1. Acute pancreatitis. Continue clear liquids. Continue p.r.n. medications for pain and nausea. 2. History of nonalcoholic steatohepatitis, status post liver transplant. Patient follows at [place], [place] with Dr. Mullen. He has a follow-up appointment with them on May 10. 3. Other medical problems, hypertension, diabetes, obstructive sleep apnea. He uses a CPAP machine. He has been on glipizide and metformin for his diabetes for over 6 months. Recently he was started on Victoza injections daily, about a month ago. Victoza has been held. 4. We will continue to follow. I will discuss this case with Dr. Booth. Further plans will be made as needed. Dictated by MAHAMED Ramirez for Aba Booth MD cc: MAHAMED Aguayo MD [facility]
[2019-04-26] MEDS: NS 1,000 ML IV SCH ×4 (00:34→17:33)
[2019-04-26] MEDS: MORPHINE IV PRN (00:34)
[2019-04-26] MEDS: DILAUDID IV PRN ×4 (05:41→20:56)
[2019-04-26] MEDS: ZOFRAN IV PRN (05:41)
[2019-04-26] MEDS: HUMULIN R SUBQ SCH ×4 (06:12→20:57)
[2019-04-26 07:38] LABS: BASO# 0.01 X1000 (0.0-0.2); BASO% 0.1 % (0.0-0.8); EOS# 0.14 X1000 (0.0-0.7); EOS% 1.7 % (0.0-10.0); HEMATOCRIT 39.3 % (42.0-52.0); HEMOGLOBIN 12.8 g/dL (14.0-18.0); IMM GRAN# 0.02 X1000 (0.0-0.04); IMM GRAN% 0.2 % (0.0-0.5); LYMPH% 8.4 % (20.5-51.1); MCH 29.9 PG (27-31); MCHC 32.6 g/dL (33-37); MCV 91.8 FL (81-99); MONO# 0.67 X1000 (0.11-0.59); MONO% 8.1 % (1.7-9.3); MPV 10.3 FL (7.4-10.4); NEUT# 6.76 X1000 (1.4-6.5); NEUT% 81.5 % (42.2-75.2); PLT 156 X1000 (130-400); RBC 4.28 XMIL (4.7-6.1); RDW 14.5 % (11.5-14.5)
[2019-04-26 07:54] LABS: AGAP 13; ALB/GLOB RATIO 1.3; ALBUMIN 3.4 g/dL (3.5-5.0); ALKALINE PHOSPHATASE 40 U/L (32-122); BUN 14 mg/dL (8-22); CALCIUM 8.7 mg/dL (8.8-10.2); CHLORIDE 103 mmol/L (98-107); COSMO 279; ESTIMATED GFR > 60; GLUCOSE 154 mg/dL (70-104); GOT 11 U/L (10-34); GPT 13 U/L (10-44); POTASSIUM 4.4 mmol/L (3.5-5.1); SODIUM 138 mmol/L (136-145); TCO2 22 mmol/L (25-35); TOTAL BILIRUBIN 0.31 mg/dL (0.20-1.00); TOTAL PROTEIN 6.1 g/dL (6.3-8.3)
[2019-04-26] MEDS: COREG PO SCH ×2 (09:05→20:56)
[2019-04-26] MEDS: PROTONIX IV SCH (09:05)
[2019-04-26] MEDS: IMURAN PO SCH (09:05)
[2019-04-26] MEDS: PROGRAF PO SCH ×2 (09:05→20:56)
[2019-04-26] MEDS: SODIUM CHLORIDE 0.9% INJ SCH (09:05)
--- NOTE | 2019-04-26 09:52 | PROGRESS NOTE ---
DATE: 04/26/2019 SUBJECTIVE: Mr. Rushing, followed by Dr. Jerrica Nava, was admitted on 04/24/2019. A 58-year- old with past medical history of liver transplantation. Did have a history of cirrhosis of the liver which was thought to be deemed secondary to fatty infiltration of the liver. On 01/29/2014, he did undergo a liver transplantation followed by Dr. Mullen at [facility] in [place], [place]. He did have his next follow-up appointment 05/10/2019. This patient states that starting about 9 a.m. on 04/24/2019, he had a right upper quadrant and left upper quadrant pain. Pain was constant and dull between 3 and a 5/10 on the pain scale. It became sharp and more intense. Pain medication improved his pain, so was admitted. In the emergency room, mild [place]ocytosis[place] [id number]. BUN was 28, creatinine 1.3. GFR 57. Amylase was 1410, lipase was 1318. CT of the abdomen and pelvis did show the patient had pancreatic fat stranding suggestive of acute interstitial pancreatitis. There was no fluid collection. No pancreatic devascularization noted. 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 There was also fatty hepatomegaly, so admitted to the regular floor. He states he is feeling a little bit better. We will keep him at full liquids and advance him to a soft diet tomorrow. If he is doing better and feeling better, I think he could be discharged tomorrow. PHYSICAL EXAMINATION: General: Today awake and alert. Vital signs: Temp 98.4 degrees, pulse 65, respirations 20, blood pressure 142/73. HEENT: Pupils are equal and round. Lungs: Clear in all lung browne. Cardiovascular: Regular rhythm and rate without murmur or S3. Abdomen: Soft. Skin: Warm and dry. Still some tenderness in the epigastric area. No distention. Urine output is 1200 mL. ASSESSMENT AND PLAN: 1. Acute pancreatitis. Continue his liquid diet today and try and advance him to a soft diet tomorrow. 2. History of nonalcoholic steatohepatitis, status post liver transplant. He is followed in [place], [place] per Dr. Mullen. He has a follow-up on May 10. 3. History of hypertension, diabetes, obstructive sleep apnea. He wears a CPAP at night. He is on glipizide and metformin for diabetes. Was recently started on Victoza injections about a month ago. I think we will hold off on the Victoza. REVIEW OF HIS ORDERS: Continue his tacrolimus 3 mg p.o. q.a.m., Protonix 40 mg q.24 hours, Coreg 12.5 mg b.i.d., Imuran 50 mg p.o. daily. cc: Duncan Encarnacion MD
[2019-04-26 12:20] LABS: AMYLASE 128 U/L (20-200); LIPASE 218 U/L (13-60)
--- NOTE | 2019-04-26 19:44 | GASTROENTEROLOGY PROGRESS NOTE ---
DATE: 04/26/2019 SUBJECTIVE: The patient is sitting up in a chair at the time my visit. He states he has had some improvement in his abdominal pain. He is feeling a little better. He is currently tolerating a liquid diet. He states he was able to get a shower. OBJECTIVE: Vital Signs: Temperature 98.8 degrees, pulse 58, respirations 18, blood pressure 137/80. General: Patient is awake, alert, in no acute distress. LABORATORY: Hematology: WBC 8.30, hemoglobin 12.8, hematocrit 39.3, MCV 91.8, platelet 156,000. Chemistry: Sodium 138, potassium 4.4, chloride 103, CO2 of 22, BUN 14, creatinine 1.0, glucose 154, calcium 8.7, total bilirubin 0.31. AST 11, ALT 13. Alkaline phosphatase 40. Amylase and lipase were not done today. Lipase on 04/25/2019 was 655. ASSESSMENT AND PLAN: 1. Acute pancreatitis most likely related to Victoza, which has been held. He is continuing to take his Imuran and Prograf due to his history of liver transplant. He has an appointment with his liver specialist at [place], [place], Dr. Mullen, on May 10. Recommend he keep that appointment. 2. Abdominal pain has improved. Continue p.r.n. medications as needed. We will continue to follow. We will repeat his amylase and lipase today and in the morning. We will continue clear liquids for today and possible advancement tomorrow depending on how his symptoms are. I have discussed this case with Dr. Booth. Dictated by MAHAMED Ramirez for Aba Booth MD cc: MAHAMED Aguayo MD [facility]
[2019-04-27] MEDS: NS 1,000 ML IV SCH ×2 (00:20→06:39)
[2019-04-27] MEDS: DILAUDID IV PRN ×2 (01:35→06:45)
[2019-04-27 08:02] LABS: AMYLASE 65 U/L (20-200); LIPASE 133 U/L (13-60)
[2019-04-27] MEDS: IMURAN PO SCH (08:16)
[2019-04-27] MEDS: PROGRAF PO SCH (08:16)
[2019-04-27] MEDS: COREG PO SCH (08:16)
[2019-04-27] MEDS: PROTONIX IV SCH (08:17)
[2019-04-27] MEDS: SODIUM CHLORIDE 0.9% INJ SCH (08:17)
[2019-04-27 08:40] VITALS: BP 152/89
[2019-04-27] MEDS: HUMULIN R SUBQ SCH (11:58)
[2019-04-27] MEDS ORDERED: MILK OF MAGNESIA PO ONE (14:30)
--- NOTE | 2019-04-27 14:34 | DISCHARGE SUMMARY ---
ADMISSION DATE: 04/23/2019 DISCHARGE DATE: 04/25/2019 PRIMARY CARE PHYSICIAN: Jerrica Nava MD REASON FOR PRESENTATION: He presented with abdominal pain. HISTORY OF PRESENT ILLNESS: This is a 58-year-old with a past medical history of liver transplantation, had a history of cirrhosis of the liver, which was thought to be deemed secondary from fatty liver disease. On 01/29/2014, he did undergo a liver transplantation, followed by Dr. Mullen at [facility] in [place], [place]. He does have his next followup on 05/10/2019. The patient states that the morning before admission, on 04/24/2019, he began to have right upper quadrant and left upper quadrant abdominal pain. Patient states the pain was constant, dull ache, between 3/10 and a 5/10, and it became more sharp and intense, became a 9/10. The pain medicine had helped improve his pain, but pain seemed to get worse with a deep breath and so he came into the hospital. In the emergency room, he was found to have mild leukocytosis, white blood cell count of 13,000. He appeared to have acute kidney injury, BUN 28, creatinine was 1.3, and GFR calculated at 57, so the patient was admitted. ADMISSION DIAGNOSIS: Acute pancreatitis. HOSPITAL COURSE: He was given some fluids. His blood sugars were controlled, held n.p.o., and his pain diminished and we were able to advance his diet back up to a soft diet. His lab and white count remained stable. Hematocrit 39, hemoglobin 12. Electrolytes looked good. Blood sugars were under good control, and he wanted to go home. He will get a followup with his cleaner window, I believe, in [place] here in a couple of weeks. DISCHARGE MEDICATIONS: He will be discharged home on aspirin 81 mg a day, Imuran 50 mg every night at bedtime, Coreg 12.5 mg b.i.d., Tricor 1 every night at bedtime, gabapentin 1 capsule p.o. p.r.n., glipizide ER 1 b.i.d., hydrochlorothiazide 12.5 mg daily. He takes his SoloSTAR 20 units subcutaneously p.r.n., and Victoza. I am going to probably recommend that he stop the Victoza for now and hold off on that for a couple weeks, then lisinopril 20 mg a day, metformin ER 1000 mg every night at bedtime, nifedipine 30 mg b.i.d., Pravachol 40 mg every night at bedtime, Protonix 40 mg a day, tacrolimus 3 capsules in the morning and 2 capsules in the evening. I will give him some pain medicine. I will give him some [place]; he can have some 7.5; I will give him 20 of those to take 1 to 2 a day p.r.n. pain. DIET: I want him to stay with a soft diet for a couple days and advance that slowly. cc: Duncan Encarnacion MD
--- NOTE | 2019-04-28 06:53 | GASTROENTEROLOGY PROGRESS NOTE ---
DATE: 04/27/2019 SUBJECTIVE: Patient is awake, alert, no acute distress. He states his abdominal pain has slightly improved. He was trying to avoid taking the IV pain medication. His last IV Dilaudid dose was this morning at 06:45. Patient currently reports his pain level of a 5 on scale of 1 to 10. He has tolerated his clear liquid diet but just does not like the broth or Jell-O. He does not feel like he is ready for a full regular diet but thinks he might eat some mashed potatoes. OBJECTIVE: Vital Signs: Temperature 98.5 degrees, pulse 60 respirations 21, blood pressure 152/89. General: Patient is awake, alert, no acute distress. LABORATORY: Hematology from 04/26/2019: WBC 8.30, hemoglobin 12.8, hematocrit 39.3, MCV 91.8, platelet 156,000. Chemistry: Sodium 138, potassium 4.4, chloride 103, CO2 of 22, BUN 14, creatinine 1.0, glucose 154, calcium 8.7, total bilirubin 0.31, AST 11, ALT 13, alkaline phosphatase 40, amylase 65. 04/27/2019 labs: Amylase 65, lipase 133, yesterday his amylase was 128, and lipase 218. ASSESSMENT AND PLAN: 1. Acute pancreatitis most likely related to Victoza which has been held. He continues on his Imuran and Prograf due to his history of liver transplant. He has a follow up appointment with his liver specialist in [place], Dr. Munoz on May 10. 2. Abdominal pain is improving. Would recommend changing his pain medication from IV to p.o. if patient can tolerate. Recommend slowly advancing his diet. I have ordered him some mashed potatoes for today and advanced him to a full liquid diet for supper. Further plans will be made according to his symptoms. I have discussed this case with Dr. Booth. Dictated by MAHAMED Ramirez for Aba Booth MD cc: MAHAMED Aguayo MD [facility]
== END 2019-04-27 16:01 | disposition home or self-care (01) | DRG 439 ==
LOC: ED 16:19 → SUATTDRO 16:27 → 3N 04-24 00:59
PROVIDERS: ATTEND Emergency Medicine